=== PATIENT | male | born 1970 | race African-American/Black ===

== ENCOUNTER 2017-07-02 09:48 | Emergency (ER) | payer OTHER ==
[~2017-07-02] VITALS: Ht 182.9 cm; Wt 89.0 kg
[~2017-07-02 09:48] MED LIST: BIPOLAR MED PO; ECOT81TA2 PO; LISI-360 PO
[2017-07-02 09:50] VITALS: BP 181/103; PULSE 115; RESP 18; TEMP 97.9; O2SAT 97
[2017-07-02 09:55] VITALS: RESP 18; O2SAT 98
[2017-07-02] MEDS ORDERED: SODIUM CHLORIDE 0.9% FLUSH 10 ML FLUSH IVF PRN (10:00)
[2017-07-02] MEDS ORDERED: AMLO10 PO (10:07)
[2017-07-02] MEDS ORDERED: HYDR25TA5 PO (10:07)
[2017-07-02] MEDS ORDERED: ESCI20TA PO (10:07)
[2017-07-02 10:18] LABS: AUTOMATED NEUTROPHIL # 6.7 TH/MM3 (1.8-7.7); BASOPHIL # 0.1 TH/MM3 (0-0.2); BASOPHIL % 1.2 % (0.0-2.0); EOSINOPHIL # 0.1 TH/MM3 (0-0.4); HEMATOCRIT 43.9 % (39.0-51.0); HEMOGLOBIN 14.7 GM/DL (13.0-17.0); LYMPH % 30.1 % (9.0-44.0); LYMPHOCYTE # 3.2 TH/MM3 (1.0-4.8); MEAN CELL VOLUME 92.5 FL (80.0-100.0); MEAN CORPUSCULAR HEMOGLOBIN 30.9 PG (27.0-34.0); MEAN CORPUSCULAR HGB CONC 33.5 % (32.0-36.0); MEAN PLATELET VOLUME 7.6 FL (7.0-11.0); MONO % 4.4 % (0.0-8.0); MONOCYTE # 0.5 TH/MM3 (0-0.9); NEUT % 63.3 % (16.0-70.0); PLATELET COUNT 374 TH/MM3 (150-450); RED BLOOD COUNT 4.75 MIL/MM3 (4.50-5.90); RED CELL DISTRIBUTION WIDTH 13.4 % (11.6-17.2); WHITE BLOOD COUNT 10.6 TH/MM3 (4.0-11.0)
--- NOTE | 2017-07-02 10:25 | RADRPT ---
EXAM DATE/TIME: 07/02/2017 09:59 [facility] COMPARISON: CHEST SINGLE AP, August 05, 2015, 20:43. INDICATIONS : Chest pain. MEDICAL HISTORY : Hypertension. SURGICAL HISTORY : None. ENCOUNTER: Initial ACUITY: 2 days PAIN SCORE: 5/10 LOCATION: chest midline. FINDINGS: A single AP erect portable view of the chest was obtained. The study is more Midinspiratory with [place] of the lung vasculature and mild atelectasis noted at the left lung base. There are no new confl uent infiltrates or effusions. The heart size is at the upper limits of normal. The bony thorax remai ns intact with overlying electrocardiogram leads. CONCLUSION: Midinspiratory exam with atelectasis at the left lung base. Nikhil Yuan MD on July 02, 2017 at 10:23 Board Certified Radiologist. This report was verified electronically.
[2017-07-02 10:27] LABS: PROTHROMBIN TIME - PATIENT 9.8 SEC (9.8-11.6)
[2017-07-02 10:37] LABS: ALT (GPT) 53 U/L (12-78)
[2017-07-02 10:40] LABS: ALBUMIN 4.1 GM/DL (3.4-5.0); ALKALINE PHOSPHATASE 137 U/L (45-117); AST (GOT) 59 U/L (15-37); BICARBONATE 28.3 MEQ/L (21.0-32.0); BLOOD UREA NITROGEN 13 MG/DL (7-18); CALCIUM 8.5 MG/DL (8.5-10.1); CHLORIDE 104 MEQ/L (98-107); CREATININE 1.11 MG/DL (0.60-1.30); GLOMERULAR FILTRATION RATE 85 ML/MIN (>89); GLUCOSE,RANDOM 103 MG/DL (74-106); SODIUM (NA) 140 MEQ/L (136-145); TOTAL BILIRUBIN ADULT 0.3 MG/DL (0.2-1.0); TOTAL PROTEIN 8.3 GM/DL (6.4-8.2); TROPONIN I LESS THAN 0.02 NG/ML (0.02-0.05)
--- NOTE | 2017-07-02 10:40 | RADRPT ---
EXAM DATE/TIME: 07/02/2017 10:16 [facility] COMPARISON: CT BRAIN W/O CONTRAST, August 05, 2015, 21:20. INDICATIONS : Headache, left side weakness. RADIATION DOSE: 39.42 CTDIvol (mGy) MEDICAL HISTORY : Cardiovascular disease. Hypertension. SURGICAL HISTORY : None. ENCOUNTER: Initial ACUITY: 1 day PAIN SCALE: 4/10 LOCATION: Left cranial TECHNIQUE: Multiple contiguous axial images were obtained of the head. Using automated exposure control and adj ustment of the mA and/or kV according to patient size, radiation dose was kept as low as reasonably a chievable to obtain optimal diagnostic quality images. DICOM format image data is available electro nically for review and comparison. FINDINGS: CEREBRUM: The ventricles are normal for age. No evidence of midline shift, mass lesion, hemorrhage or acute in farction. No extra-axial fluid collections are seen. POSTERIOR FOSSA: The cerebellum and brainstem are intact. The 4th ventricle is midline. The cerebellopontine angle i s unremarkable. EXTRACRANIAL: The visualized portion of the orbits is intact. SKULL: The calvaria is intact. No evidence of skull fracture. CONCLUSION: Negative noncontrast CT. Nikhil Yuan MD on July 02, 2017 at 10:34 Board Certified Radiologist. This report was verified electronically.
[2017-07-02 10:43] LABS: BILIRUBIN, URINE NEG (NEG); BLOOD, URINE NEG (NEG); GLUCOSE,URINE NEG (NEG); KETONE, URINE NEG (NEG); MUCUS URINE FEW /lpf (OCC); NITRITE,URINE NEG (NEG); SQUAMOUS EPITHELIAL CELL URINE <1 /hpf (0-5); URINE COLOR YELLOW (YELLW/STRAW); URINE LEUKOCYTE ESTERASE NEG (NEG)
[2017-07-02 11:02] VITALS: BP 170/100; PULSE 104; RESP 18; TEMP 98; O2SAT 98
--- NOTE | 2017-07-02 12:41 | PD ---
HPI Chief Complaint: Neuro Symptoms/ Deficits Time Seen by Provider: 09:52 Travel History International Travel<30 days: No Contact w/Intl Traveler<30days: No Traveled to known affect area: No History of Present Illness HPI 47-year-old male was brought in by his brother since he was complaining of left sided weakness. Patient is heavily intoxicated and is not holding a conversation very well. However as per his sketchy history it is understood is that since yesterday 4 PM he noticed that his left upper and lower extremity felt weak. However patient proceeded to drink. His brother finally convinced him to come to the emergency room today. Vital signs are suggestive of hypertension. Patient says he has history of hypertension and he thinks it's all from his high blood pressure. It is unknown whether patient is compliant with his medications. He denies doing any drugs. PFSH Past Medical History Narrative Medical List of his past medical, surgical, social and family history is reviewed from the nursing note. Hx Anticoagulant Therapy: No Blood Disorders: No Bipolar Disorder: Yes Anxiety: Yes Depression: Yes Heart Rhythm Problems: No Cancer: No Cardiovascular Problems: Yes High Cholesterol: No Chemotherapy: No Chest Pain: No Congestive Heart Failure: No Cerebrovascular Accident: No Diabetes: No Diminished Hearing: No Endocrine: No Genitourinary: No Hypertension: Yes Immune Disorder: No Musculoskeletal: No Neurologic: Yes (THIS ADMIT, NUMBNESS/WEAKNESS LUE) Psychiatric: Yes (BIPOLAR) Reproductive: No Respiratory: No Integumentary: Yes (PSORIASIS) Immunizations Current: Yes Tetanus Vaccination: < 5 Years Influenza Vaccination: Yes Past Surgical History Surgical History: No Previous Surgery Social History Alcohol Use: Yes (OCC) Tobacco Use: Yes (1/2 PPD) Substance Use: No (Pt denies) Allergies-Medications (Allergen,Severity, Reaction): Coded Allergies: No Known Allergies (Verified Adverse Reaction, Unknown, 07/02/17) Comments No known drug allergies. Reported Meds & Prescriptions Reported Meds & Active Scripts Active Reported Hydrochlorothiazide 25 Mg Tab 25 Mg PO DAILY Escitalopram (Escitalopram Oxalate) 20 Mg Tab 20 Mg PO DAILY Norvasc (Amlodipine Besylate) 10 Mg Tab 10 Mg PO DAILY Narrative Medication List of his home medications reviewed from the nursing note. Review of Systems ROS Limitations: Intoxication, Altered Mental Status Except as stated in HPI: all other systems reviewed are Neg Physical Exam Narrative GENERAL: Heavily intoxicated, altered mental status, GCS of 13 SKIN: Focused skin assessment warm/dry. HEAD: Atraumatic. Normocephalic. EYES: Pupils equal and round. No scleral icterus. No injection or drainage. ENT: No nasal bleeding or discharge. Mucous membranes pink and moist. NECK: Trachea midline. No JVD. CARDIOVASCULAR: Regular rate and rhythm. No murmur appreciated. RESPIRATORY: No accessory muscle use. Clear to auscultation. Breath sounds equal bilaterally. GASTROINTESTINAL: Abdomen soft, non-tender, nondistended. Hepatic and splenic margins not palpable. MUSCULOSKELETAL: No obvious deformities. No clubbing. No cyanosis. No edema. NEUROLOGICAL: GCS of 13. No obvious cranial nerve deficits. Slurred speech, heavily intoxicated. Patient is having difficulty following commands but the motor strength seems similar in all 4 extremities and is about 4 out of 5. PSYCHIATRIC: Appropriate mood and affect; insight and judgment normal. Data Data Last Documented VS Vital Signs Date Time Temp Pulse Resp B/P (MAP) Pulse Ox O2 Delivery O2 Flow Rate FiO2 07/02/17 11:15 07/02/17 11:02 98.0 104 18 98 Room Air Orders Orders Electrocardiogram (07/02/17 09:52) Prothrombin Time / Inr (Pt) (07/02/17 09:52) Complete Blood Count With Diff (07/02/17 09:52) Comprehensive Metabolic Panel (07/02/17 09:52) Drug Screen, Random Urine (07/02/17 09:52) Troponin I (07/02/17 09:52) Urinalysis - C+S If Indicated (07/02/17 09:52) Ct Brain W/O Iv Contrast(Rout) (07/02/17 09:52) Chest, Single Ap (07/02/17 09:52) Ecg Monitoring (07/02/17 09:52) Iv Access Insert/Monitor (07/02/17 09:52) Oximetry (07/02/17 09:52) Sodium Chloride 0.9% Flush (Ns Flush) (07/02/17 10:00) Alcohol (Ethanol) (07/02/17 09:52) Labs Laboratory Tests Test 07/02/17 09:53 07/02/17 10:30 White Blood Count 10.6 TH/MM3 Red Blood Count 4.75 MIL/MM3 Hemoglobin 14.7 GM/DL Hematocrit 43.9 % Mean Corpuscular Volume 92.5 FL Mean Corpuscular Hemoglobin 30.9 PG Mean Corpuscular Hemoglobin Concent 33.5 % Red Cell Distribution Width 13.4 % Platelet Count 374 TH/MM3 Mean Platelet Volume 7.6 FL Neutrophils (%) (Auto) 63.3 % Lymphocytes (%) (Auto) 30.1 % Monocytes (%) (Auto) 4.4 % Eosinophils (%) (Auto) 1.0 % Basophils (%) (Auto) 1.2 % Neutrophils # (Auto) 6.7 TH/MM3 Lymphocytes # (Auto) 3.2 TH/MM3 Monocytes # (Auto) 0.5 TH/MM3 Eosinophils # (Auto) 0.1 TH/MM3 Basophils # (Auto) 0.1 TH/MM3 CBC Comment DIFF FINAL Differential Comment Prothrombin Time 9.8 SEC Prothromb Time International Ratio 1.0 RATIO Blood Urea Nitrogen 13 MG/DL Creatinine 1.11 MG/DL Random Glucose 103 MG/DL Total Protein 8.3 GM/DL Albumin 4.1 GM/DL Calcium Level 8.5 MG/DL Alkaline Phosphatase 137 U/L Aspartate Amino Transf (AST/SGOT) 59 U/L Alanine Aminotransferase (ALT/SGPT) 53 U/L Total Bilirubin 0.3 MG/DL Sodium Level 140 MEQ/L Potassium Level 3.7 MEQ/L Chloride Level 104 MEQ/L Carbon Dioxide Level 28.3 MEQ/L Anion Gap 8 MEQ/L Estimat Glomerular Filtration Rate 85 ML/MIN Troponin I LESS THAN 0.02 NG/ML Ethyl Alcohol Level 334 MG/DL Urine Color YELLOW Urine Turbidity CLEAR Urine pH 6.0 Urine Specific [place] 1.010 Urine Protein TRACE mg/dL Urine Glucose (UA) NEG mg/dL Urine Ketones NEG mg/dL Urine Occult Blood NEG Urine Nitrite NEG Urine Bilirubin NEG Urine Urobilinogen LESS THAN 2.0 MG/DL Urine Leukocyte Esterase NEG Urine RBC 1 /hpf Urine Squamous Epithelial Cells <1 /hpf Urine Mucus FEW /lpf Microscopic Urinalysis Comment CATH-CULT NOT IND Urine Opiates Screen NEG Urine Barbiturates Screen NEG Urine Amphetamines Screen NEG Urine Benzodiazepines Screen NEG Urine Cocaine Screen NEG Urine Cannabinoids Screen NEG MDM Medical Decision Making Medical Screen Exam Complete: Yes Emergency Medical Condition: Yes Medical Record Reviewed: Yes Interpretation(s) Twelve-lead EKG was reviewed by me. Normal sinus rhythm, normal axis, nonspecific ST-T wave changes, tachycardia. Heart rate of 115 bpm. Differential Diagnosis Intracranial bleed, acute alcohol intoxication, substance abuse, stroke Narrative Course 12 PM stroke alert was not called given the questionable time of onset and patient being significantly intoxicated. Blood test results suggested an alcohol level of 335. Rest of the blood test results came back and were relatively stable. Patient brother who was completely sober was in the room and I have gone for a trauma alert. When I returned the nurse told me that patient wanted to leave and the brother was a sober ride home to the patient home. I did not a chance to talk to the patient or the brother. Patient was not in capacity to make decisions for himself but his brother again being a sober ride home was a relatively safe alternative. The brother did sign AGAINST MEDICAL ADVICE. Procedures EKG Prior to Arrival: No Diagnosis Primary Impression: Acute alcohol intoxication Qualified Codes: F10.929 - Alcohol use, unspecified with intoxication, unspecified Patient Instructions: General Instructions Departure Forms: Tests/Procedures Disposition: 07 AGAINST MEDICAL ADVICE Condition: Serious Favian Garrett MD Jul 02, 2017 12:41
--- NOTE | 2017-07-02 13:50 | EKG ---
Date Performed: 07/02/2017 Time Performed: 10:11:32 PTAGE: 47 years EKG: SINUS TACHYCARDIA POSSIBLE LEFT ATRIAL ENLARGEMENT NONSPECIFIC T-WAVE ABNORMALITY ABNORMAL RHYTHM ECG INTERPRETATION BASED ON A DEFAULT AGE OF 40 YEARS PREVIOUS TRACING : 08/05/2015 21.43 Since prior tracing, sinus rate has increased. Nonspe cific T-wave changes are more prominent, consider ischemia. DOCTOR: Jono Enriquez Interpretating Date/Time 07/02/2017 13:49:22
== END 2017-07-02 12:42 | disposition left against medical advice (07) ==
LOC: NEPE 09:48
DX: F10.929 Alcohol use, unspecified with intoxication, unspecified (principal); Z53.21 Procedure and treatment not carried out due to patient leaving prior to being seen by health care provider; I10 Essential (primary) hypertension; R94.31 Abnormal electrocardiogram [ECG] [EKG]; Z72.0 Tobacco use
CPT/HCPCS: 70450; 71010; 80053; 80307; 81001; 84484; 85025; 85610; 93005